=== PATIENT | male | born 1950 | race Caucasian/White ===

== ENCOUNTER 2022-08-25 17:34 | Emergency (ER) | payer BC, MEDICARE ==
[2022-08-25] MEDS ORDERED: Sodium Chloride 0.9% 250 ML IV SCH ×2 (19:00→19:30)
[2022-08-25] MEDS ORDERED: predniSONE 20 MG Tab PO ONE (20:52)
[2022-08-25] MEDS ORDERED: Fludrocortisone 0.1 MG Tab PO ONE (20:53)
== END 2022-08-25 22:31 | disposition home or self-care (01) ==
LOC: JP.ED 17:34
DX: S00.03XA Contusion of scalp, initial encounter (principal); R55 Syncope and collapse; E86.0 Dehydration; N17.9 Acute kidney failure, unspecified; I12.9 Hypertensive chronic kidney disease with stage 1 through stage 4 chronic kidney disease, or unspecified chronic kidney disease; N18.9 Chronic kidney disease, unspecified; E27.40 Unspecified adrenocortical insufficiency; Z88.8 Allergy status to other drugs, medicaments and biological substances; Z88.1 Allergy status to other antibiotic agents; Z88.2 Allergy status to sulfonamides; Z79.82 Long term (current) use of aspirin; Z79.899 Other long term (current) drug therapy; W07.XXXA Fall from chair, initial encounter
CPT/HCPCS: 36415; 70450; 80048; 81001; 83735; 85025; 93005; 93010; 99284; A9270-GY; J7050; J7512